=== PATIENT | female | born 1925 | race Caucasian/White ===

== ENCOUNTER 2016-09-15 18:49 | Emergency (ER) | payer MEDICARE, OTHER ==
[~2016-09-15] VITALS: Ht 157.5 cm; Wt 59.4 kg
[2016-09-15 18:49] VITALS: Ht 157.5 cm; Wt 59.4 kg
--- OUTSIDE RECORDS SUMMARY | 2016-09-15 18:56 | XMS REPORT ---
Author Author Oliverio Bragg Organization Unknown Address [address] [place], [place] [id number] Phone Care Team Providers Care Bread Baker Name Role Phone Karena Tillman PP Unavailable Unavailable Reason for Referral No Reason for Referral was given. History of Present Illness No HPI available. 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); (Active) Medication * Atenolol 50 MG Oral Tablet; take one tablet by mouth every day; Start Date: ; End Date: (Active) * Citracal/Vitamin D 250-200 MG-UNIT Oral Tablet; Start Date: 01/27/2009 (Active ) * Ocuvite Oral Tablet; Start Date: 01/27/2009 (Active) * Centrum Silver Oral Tablet; Start Date: 02/22/2011 (Active) * Fish Oil 1000 MG Oral Capsule; Start Date: 02/22/2011 (Active) * Clobetasol Propionate 0.05 % External Ointment; APPLY SPARINGLY TO RASH ON LEFT NECK TWICE DAILY UNTIL CLEAR; Start Date: 06/08/2012; End Date: (Active) Allergies and Adverse Reactions * Amoxicillin TABS (Active) * Biaxin TABS (Active) * Doxycycline Monohydrate CAPS; Rash (Active) Past Medical History * History of Hypertension (401.9); (Resolved) * History of Dizziness (780.4); (Resolved) * History of Ringing In The Ears (Tinnitus) (388.30); (Resolved) * History of Visual Impairment (369.9); (Resolved) * History of Numbness (Hypesthesia) (782.0); (Resolved) * History of Neck Stiffness (719.58); (Resolved) * History of Basal Cell Carcinoma Of The Skin Of The Face Comments: 01-15-10 Nasal tip, [place]/C by Dr. 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: 06-08-12 Bernal' s nose, shave bx; 06-27-12 ED/C (232.3); (Resolved) Procedures Procedure Procedure Date Date Completed Status Hysterectomy - - Active Immunization * Influenza (Lot #: [id number]) - Administered on: 03/03/2010 * Tdap (Adacel); #1 - Administered on: 03/16/2011 * Influenza (Lot #: [id number]) - Administered on: 04/07/2011 Family History * Maternal history of Cardiovascular Symptoms (Active) * Family history of Family Health Status Of Father - (Active) * Family history of Family Health Status Of Mother - (Active) Social History * Marital History - (Active) * Occupation: Retired (Active) * Caffeine Use (Active) * Never A Smoker (Active) * History of Alcohol Use (Active) * Stopped Drinking Alcohol (Active) Treatment Plan * Occult Blood Take Home Test 8211 06/24/2011 Routine * Urine Culture PRN 8000 06/24/2011 Routine * STOOL OCCULT BLOOD PANEL (x3) 8210 07/06/2012 Routine Advance Directives * No Advance Directives available. Encounters * Appointment 10/03/2012 * RTNPT , Provider: Guicho Daugherty, Status: Pen , Time: 9:45 AM 2012
--- OUTSIDE RECORDS SUMMARY | 2016-09-15 18:56 | XMS REPORT | Summary of Care ---
Author Author Rolan Reyes M.D. Organization Unknown Address [address] [place], [place] [id number] Phone Unavailable Care Team Providers Care Pipe Liner Name Role Phone Rosetta Thurston M.D. Unavailable Unavailable Rosetta Reyes M.D. 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, 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) Status: Active Rash (782.1, R21) Status: Active Brachial plexus lesions (353.0, G54.0) Status: Active Degenerative arthritis (715.90, M19.90) Status: Active Anemia (285.9, D64.9) Status: Active Hypothyroidism (244.9, E03.9) Status: Active Vertigo (780.4, R42) Status: Active Chest congestion (786.9, R09.89) Status: Active Benign essential hypertension (401.1, I10) Status: Active Hypertension (401.9, I10) Status: Active Memory difficulties (780.93, R41.3) Status: Active Leg ulcer (707.10, L97.909) Status: Active Medications Name Dates Details Atenolol 50 MG Oral Tablet take one tablet by mouth every day Quantity: 90 Primo Thurston M.D.* Started 16-Sep-2008 ActiveOcuvite Oral Tablet * Refills: 0 Primo Thurston M.D.* Started 27-Jan-2009 ActiveCalcium 600+D3 600-400 MG-UNIT Oral Tablet * Refills: 0 * Started 19-Oct-2012 ActiveMultiple Vitamin Oral Tablet TAKE 1 TABLET DAILY. * Quantity: 100 Refills: 0 * Started 04-Jun-2014 ActiveTriamterene-HCTZ 75-50 MG Oral Tablet take one tablet by mouth every day * Quantity: 30 Refills: 3 Primo Thurston M.D.* Started 10-Oct-2014 ActiveMupirocin 2 % External Ointment APPLY A SMALL AMOUNT 3 TIMES DAILY DIRECTED. 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, D04.30) Status: Resolved History of dizziness (V13.89, Z87.898) Status: Resolved History of hypertension (V12.59, Z86.79) Status: Resolved History of Neck stiffness (723.5, M43.6) Status: Resolved History of Numbness (782.0, R20.0) Status: Resolved History of tinnitus (V12.49, Z86.69) Status: Resolved History of Visual impairment (369.9, H54.7) Status: Resolved Procedures Procedure Dates Details History of Hysterectomy Procedures not documented Immunization Name Dates Details Influenza Lot #: [id number] Administered on:03-Mar-2010 Tdap (Adacel) #1 Administered on:16-Mar-2011 Influenza Lot #: [id number] Administered on:07-Apr-2011 Fluzone High-Dose Intramuscular Suspension Lot #: [id number] Administered on:05-Mar-2014 Family History Unknown Family Member* Name Dates Details Family history of Family Health Status Of Father - Comments: Family History Status: Active Family history of Family Health Status Of Mother - Comments: Family History Status: Active Mother* Name Dates Details Family history of Cardiovascular Symptoms Status: Active Social History Name Dates Details Smoking Status* Never smoker Vital Signs Date Test Result Details 11-Jan-2015 11:25 BP Systolic 108 mm[Hg] Status: BP Diastolic 58 mm[Hg] Status: Temperature 97.7 f Status: Heart Rate 69 /min Status: Respiration Rate 16 /min Status: O2 SAT 96 % Status: Results Date Description Value Details Results not documented Plan of Care Planned Observations* Name Dates Details Planned Goals not documented Goal Planned Encounters* Appointment; Provider: Primo Thurston On 19-Mar-2015 14:30 * Appointment; Provider: Primo Thurston On 26-Mar-2013 09:15 * Appointment; Provider: Primo Thurston On 25-Jul-2007 14:00 Instructions * Instructions not documented Encounters Appointment; Rolan Reyes Encounter Diagnosis: Problem not documented On 11-Jan-2015 11:00 Appointment; Primo Thurston Encounter Diagnosis: Problem not documented On 10-Oct-2014 11:30 Appointment; Kristian Howard Encounter Diagnosis: Problem not documented On 07-Aug-2014 10:00 Appointment; Primo Thurston Encounter Diagnosis: Problem not documented On 08-Jul-2014 11:45 Appointment; Primo Thurston Encounter Diagnosis: Problem not documented On 04-Jun-2014 14:00 Appointment; Primo Thurston Encounter Diagnosis: Problem not documented On 26-Feb-2014 15:30 Appointment; Primo Thurston Encounter Diagnosis: Problem not documented On 15:00 Appointment; Primo Thurston Encounter Diagnosis: Problem not documented On 27-Aug-2013 14:15 Appointment; Primo Thurston Encounter Diagnosis: Problem not documented On 20-Aug-2013 16:15
--- OUTSIDE RECORDS SUMMARY | 2016-09-15 18:56 | XMS REPORT ---
Author Author [facility]. Organization [facility] Address [address] [place] [address] Phone [phone] Summary purpose CCDA Sent to [facility] Chief Complaint and Reason for Visit No authorized Reason for Visit (Admitting Diagnosis) is available for this visit. Problem list No authorized problems tracked for continuity of care are available for this visit. Encounters No authorized problems tracked for encounter diagnoses are available for this visit. Medications No medications recorded for this patient visit Allergies, adverse reactions, alerts No allergy information is available for this patient. Immunizations No immunizations recorded for this patient visit Relevant diagnostic tests and/or laboratory data RESULTS Chemistry Group [id number]:25:00 Result Normal Range Units Sodium 141 134-145 mmol/L Potassium 3.8 3.6-5.0 mmol/L Chloride L 95 98-107 mmol/L CO2 29 22-30 mmol/L Glucose 103 75-110 mg/dl BUN H 24 9-20 mg/dl Creatinine .82 0.8-1.7 mg/dl Calcium 9.8 8.4-10.2 mg/dl History of procedures Procedure Code Code Type Description Date Performed Performing Physician 17893 CPT-4 METABOLIC PANEL TOTAL CA 10-22-2015 REJI MANSFIELD Functional status No functional or cognitive status observations are available for this visit. Vital signs No authorized vital signs are available for this visit. Social history No Social History or smoking status observations were recorded for this visit. ( Unknown if ever smoked.) Treatment Plan No treatment plan text is available for this visit. Hospital discharge instructions No discharge instruction text is available for this visit.
--- OUTSIDE RECORDS SUMMARY | 2016-09-15 18:56 | XMS REPORT | Summary of Care ---
Author Author Kristian Howard M.D. Unknown Address [address] [place], [place] [id number] Phone Unavailable Care Team Providers Care Straight Truck Driver Name Role Phone Karena Sebastian, Rosetat Unavailable Unavailable Primo Thurston PP Unavailable Unavailable [...] Status: Active Vertigo (780.4, R42) Status: Active Hypertension (401.9, I10) Status: Active Leg ulcer (707.10, L97.909) Status: Active Chest congestion (786.9, R09.89) Status: Active Benign essential hypertension (401.1, I10) Status: Active Memory difficulties (780.93, R41.3) Status: Active Medications Name Dates Details Atenolol [...] Quantity: 100 Refills: 0 * Started 04-Jun-2014 Active Allergies and Adverse Reactions Name Dates [...] Procedures Procedure Dates Details History of Hysterectomy Neuro Dementia Profile 9011 Ordered:07-Aug-2014 Immunization Name Dates Details Influenza Lot #: [id number] Administered on:03-Mar-2010 Tdap (Adacel) #1 Administered on:16-Mar-2011 Influenza Lot #: [id number] Administered on:07-Apr-2011 Fluzone High-Dose Intramuscular Suspension Lot #: [id number] Administered on:05-Mar-2014 Family History Unknown Family Member* [...] smoker Vital Signs Date Test Result Details 07-Aug-2014 10:31 BP Systolic 128 mm[Hg] Status: BP Diastolic 60 mm[Hg] Status: Heart Rate 84 /min Status: Respiration Rate 16 /min Status: Weight 118.5 lb Status: Body Mass Index Calculated 21.67 kg/m2 Status: Body Surface Area Calculated 1.53 m2 Status: 08-Jul-2014 11:56 BP Systolic 150 mm[Hg] Status: BP Diastolic 70 mm[Hg] Status: Heart Rate 94 /min Status: Weight 116 lb Status: Height 62 in Status: O2 SAT 96 % Status: Body Mass Index Calculated 21.22 kg/m2 Status: Body Surface Area Calculated 1.52 m2 Status: Results Date Description Value Details Results not documented Plan of Care Planned Observations* Name Dates Details Planned Goals not documented Goal Planned Encounters* Appointment; Provider: Primo Thurston On 10-Oct-2014 11:30 * Appointment; Provider: Primo Thurston On 26-Mar-2013 09:15 * Appointment; Provider: Primo Thurston On 25-Jul-2007 14:00 Instructions * Instructions not documented Encounters Appointment; Kristian Howard Encounter Diagnosis: Problem not [...] Diagnosis: Problem not documented On 20-Aug-2013 16:15 Appointment; Primo Thurston Encounter Diagnosis: Problem not documented On 19-Oct-2012 15:30 Appointment; Willow Lindo Encounter Diagnosis: Problem not documented On 04-Oct-2012 09:45 Appointment; Oliverio Bragg Encounter Diagnosis: Problem not documented On 03-Oct-2012 14:15
--- OUTSIDE RECORDS SUMMARY | 2016-09-15 18:56 | XMS REPORT | Summary of Care ---
Author Author Kristian Howard M.D. 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.4, M54.12) Status: Active Carpal tunnel syndrome (354.0, G56.00) Status: Active 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, 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, 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) Status: Active Rash (782.1, R21) Status: Active Brachial plexus lesions (353.0, G54.0) Status: Active Degenerative arthritis (715.90, M19.90) Status: Active Anemia (285.9, D64.9) Status: Active Hypothyroidism (244.9, E03.9) Status: Active Hypertension (401.9, I10) Status: Active Memory difficulties (780.93, R41.3) Status: Active Benign essential hypertension (401.1, I10) Status: Active Chest congestion (786.9, R09.89) Status: Active Leg ulcer (707.10, L97.909) Status: Active Vertigo (780.4, R42) Status: Active A Fall (E888.9) Status: Active Medications Name Dates Details Multiple Vitamin Oral Tablet TAKE 1 TABLET DAILY. Quantity: 100 * Started 04-Jun-2014 ActiveTriamterene-HCTZ 75-50 MG Oral Tablet take one tablet by mouth every day * Quantity: 30 Refills: 3 Primo Thurston M.D.* Started 10-Oct-2014 ActiveOcuvite Oral Tablet * Refills: 0 Primo Thurston M.D.* Started 27-Jan-2009 ActiveAtenolol 50 MG Oral Tablet take one tablet by mouth every day * Quantity: 90 Refills: 3 Primo Thurston M.D.* Started 16-Sep-2008 ActiveCalcium 600+D3 600-400 MG-UNIT Oral Tablet * Refills: 0 * Started 19-Oct-2012 Active Allergies and Adverse Reactions Name Dates [...] Immunization Name Dates Details Influenza Lot #: [id number] Administered on:03-Mar-2010 Tdap (Adacel) #1 Administered on:16-Mar-2011 Influenza Lot #: [id number] Administered on:07-Apr-2011 Fluzone High-Dose Intramuscular Suspension Lot #: [id number] Administered on:05-Mar-2014 Family History Unknown Family Member* [...] smoker Vital Signs Date Test Result Details No Known Vitals to report Results Date Description Value Details Results not documented Plan of Care Planned Observations* Name Dates Details Planned Goals not documented Goal Planned Encounters* Appointment; Provider: Primo Thurston On 26-Mar-2013 09:15 * Appointment; Provider: Primo Thurston On 25-Jul-2007 14:00 Instructions * Instructions not documented Encounters Appointment; Primo Thurston Encounter Diagnosis: Problem not [...]
--- OUTSIDE RECORDS SUMMARY | 2016-09-15 18:56 | XMS REPORT | Summary of Care ---
Author Author Primo Thurston M.D. Organization Unknown Address [address] [place], [place] [id number] Phone Unavailable Care Team Providers Care Production Tester Name Role Phone Rosetta Thurston M.D. Unavailable Unavailable Primo Thurston PP Unavailable [...] Status: Active Hypertension (401.9, I10) Status: Active Vertigo (780.4, R42) Status: Active Medications Name Dates Details Atenolol 50 MG Oral Tablet take one tablet by mouth every day Quantity: 90 Primo Thurston M.D.* Started 16-Sep-2008 ActiveTriamterene-HCTZ 75-50 MG Oral Tablet take one tablet by mouth every day * Quantity: 90 Refills: 1 Primo Thurston M.D.* Started 16-Sep-2008 ActiveOcuvite Oral Tablet * Refills: 0 Primo Thurston M.D.* Started 27-Jan-2009 ActiveCalcium 600+D3 600-400 MG-UNIT Oral Tablet * Refills: 0 * Started 19-Oct-2012 ActiveTransderm-Scop 1.5 MG Transdermal Patch 72 Hour Apply one patch every 3rd day * Quantity: 2 Refills: 0 Primo Thurston M.D.* Started 04-Mar-2014 Active Allergies and Adverse Reactions Name Dates [...] Procedures Procedure Dates Details History of Hysterectomy CP - Electro CardioGram ECG/ EKG Ordered:20-Feb-2014 STOOL OCCULT BLOOD PANEL (x3) 8210 Ordered:20-Feb-2014 Immunization Name Dates Details Influenza Lot #: [id number] Administered on:03-Mar-2010 Tdap (Adacel) #1 Administered on:16-Mar-2011 Influenza Lot #: [id number] Administered on:07-Apr-2011 Fluzone High-Dose Intramuscular Suspension Lot #: [id number] Administered on:05-Mar-2014 Family History Unknown Family Member* [...] smoker Vital Signs Date Test Result Details 26-Feb-2014 15:52 BP Systolic 152 mm[Hg] Status: BP Diastolic 68 mm[Hg] Status: Heart Rate 81 /min Status: Weight 113 lb Status: Height 62 in Status: O2 SAT 97 % Status: Body Mass Index Calculated 20.67 kg/m2 Status: Body Surface Area Calculated 1.5 m2 Status: Results Date Description Value Details 26-Feb-2014 08:42 CBC w/ Auto Diff 7150 Comments: Fastin hours WBC 6.3 K/uL (Better) Range: 4.5-11.0 RBC 4.61 mil/uL (Better) Range: 3.60-5.00 HGB 13.2 g/dL (Better) Range: 12.0-16.0 HCT 42.3 % (Better) Range: 36.0-48.0 MCV 91.7 fL (Better) Range: 80.0-99.0 MCH 28.6 pg (Better) Range: 27.3-32.5 MCHC 31.1 % (Below low threshold) Range: 32.0-36.0 RDW 12.8 % (Better) Range: 11.6-14.8 PLATELETS 190 K/uL (Better) Range: 150-400 MPV 7.6 fL (Better) Range: 6.0-11.0 %NEUTRO 58.5 % (Better) Range: 37.0-80.0 %LYMPHS 30.2 % (Better) Range: 13.0-50.0 %MONO 4.7 % (Better) Range: 0.0-12.0 %EOS 2.8 % (Better) Range: 0.0-7.0 %BASO 0.8 % (Better) Range: 0.0-2.5 %ADRIENNE 3.1 % (Better) Range: 0.0-5.0 NEUTRO 3.7 K/uL (Better) Range: 2.0-6.9 LYMPHS 1.9 K/uL (Better) Range: 0.6-3.4 MONOS 0.3 K/uL (Better) Range: 0.0-0.9 EOS 0.2 K/uL (Better) Range: 0.0-0.7 BASO 0.1 K/uL (Better) Range: 0.0-0.2 09:10 ERYTHROCYTE SED RATE 7800 Comments: Fastin hours ERYTHROCYTE SED RATE 16 mm/60 min. (Better) Range: 0-20 09:17 XRay CHEST-PA & LAT Comments: Exam Date: 08:52Dictation Date: 09:17 X CHEST PA & LAT (Better) 09:20 THYROID STIM. HORMONE 3602 Comments: Fastin hours THYROID STIM. HORMONE 1.659 uIU/mL (Better) Range: 0.550-4.780 Comments: \[id number]\No established reference ranges for infants and children < 2 years of ageNo established reference ranges for infants and children <2 years of age----- 09:21 Comprehensive Metabolic Panel 1212 Comments: Fastin hours SODIUM 139 mmol/L (Better) Range: 133-144 POTASSIUM 3.7 mmol/L (Better) Range: 3.5-5.1 CHLORIDE 101 mmol/L (Better) Range: 98-110 CARBON DIOXIDE 32.0 mmol/L (Better) Range: 23.0-33.0 ANION GAP 6 mmol/L (Better) Range: 6-16 BUN 21 mg/dL (Above high threshold) Range: 7-18 CREATININE, SERUM 0.87 mg/dL (Better) Range: 0.43-1.13 BUN:CREATININE RATIO 24 (Better) EST GFR, >60 ml/min (Better) Range: >60 EST GFR, NON-AFR MALAYSIAN >60 ml/min (Better) Range: >60 Comments: EST GFR is reported in ml/min per 1.73 m2 of body surface area. For -Slovak, please multiple result by 1.2.----- GLUCOSE 112 mg/dL (Above high threshold) Range: 70-100 ALK PHOSPHATASE 64 U/L (Better) Range: 46-116 Comments: Please Note: New Reference Range effective 2013.----- TOTAL BILIRUBIN 0.60 mg/dL (Better) Range: 0.20-1.00 AST 20 U/L (Better) Range: 8-35 ALT 19 U/L (Better) Range: 12-78 ALBUMIN 3.7 g/dL (Better) Range: 3.4-5.0 TOTAL PROTEIN 7.5 g/dL (Better) Range: 6.4-8.2 A/G RATIO 1.0 units (Better) Range: 1.0-1.8 CALCIUM 9.7 mg/dL (Better) Range: 8.5-10.1 09:21 C REACTIVE PROTEIN, CRP 2030 Comments: Fastin hours C REACTIVE PROTEIN 0.3 mg/dL (Better) Range: 0.0-0.9 09:21 LIPID PROFILE 1184 Comments: Fastin hours CHOLESTEROL 207 mg/dL (Above high threshold) Range: <200 TRIGLYCERIDES 140 mg/dL (Better) Range: 30-200 HDL Cholesterol 68 mg/dL (Better) Range: >39 NON HDL CHOLESTEROL 139 (Better) CARDIAC RSK FACTOR 3.0 units (Below low threshold) Range: 4.4-5.0 LDL - CALCULATED 111 mg/dL (Better) Range: 0-130 09:35 Urinalysis, Reflex to Microscopic or Culture PRN 8005 Comments: Fastin hours pH 8.0 (Abnormal) Range: 5.0-7.5 SP GRAVITY 1.015 (Better) Range: 1.010-1.030 APPEARANCE CLEAR (Better) Range: Clear COLOR YELLOW (Better) Range: Straw-Yellow PROTEIN NEGATIVE mg/dL (Better) Range: Negative-Trace GLUCOSE NEGATIVE mg/dL (Better) Range: Negative KETONE NEGATIVE mg/dL (Better) Range: Negative BILIRUB NEGATIVE (Better) Range: Negative BLOOD NEGATIVE (Better) Range: Negative UROBIL 0.2 EU/dL (Better) Range: 0.2-1.0 NITRITE NEGATIVE (Better) Range: Negative LEUK LARGE (Abnormal) Range: Negative 09:35 Urine Microscopic UMIC Comments: Fastin hours WBC 21-50 /HPF (Abnormal) Range: 0-5 Comments: Specimen referred to Microbiology for Culture----- MUCUS 1+ /LPF (Better) Range: Negative-2+ BACTERIA 2+ /HPF (Abnormal) Range: Negative-Trace EPITH 6-10 /HPF (Better) Range: 0-10 15:28 CP - Electro CardioGram ECG/ EKG Electro CardioGram (Better) 27-Feb-2014 09:29 URINE CULTURE 5010 Comments: Fastin hours *URINE CULTURE Microbiology results (Better) Comments: URINE SOURCE: Clean CatchCOLONY COUNT75,000-100,000 cfu/ml. of 3 or more colony types of gram positive bacteria, (SUGGESTIVE OF CONTAMINATION). *RECOMMEND REPEAT COLLECTION*- ---- Plan of Care Planned Observations* Name Dates Details Planned Goals not documented Goal Planned Encounters* Appointment; Provider: Primo Thurston On 04-Jun-2014 14:00 * Appointment; Provider: Primo Thurston On 26-Mar-2013 [...] Diagnosis: Problem not documented On 03-Oct-2012 14:15 Appointment; Primo Thurston Encounter Diagnosis: Problem not documented On 06-Jul-2012 14:30 Appointment; Willow Lindo Encounter Diagnosis: Problem not documented On 27-Jun-2012 10:30 Appointment; Primo Thurston Encounter Diagnosis: Problem not documented On 20-Jun-2012 15:15 Appointment; Willow Lindo Encounter Diagnosis: Problem not documented On 08-Jun-2012 09:30 Appointment; Primo Thurston Encounter Diagnosis: Problem not documented On 05-Apr-2012 14:45
--- OUTSIDE RECORDS SUMMARY | 2016-09-15 18:56 | XMS REPORT | Summary of Care ---
Author Author Primo Thurston M.D. Organization Unknown Address [address], [place] [address] Phone Unavailable Care Team Providers Care Ion Exchange Operator Name Role Phone Rosetta Thurston M.D. Unavailable [...] Status: Active Vertigo (780.4, R42) Status: Active Leg ulcer (707.10, L97.909) Status: [...] mouth every day * Quantity: 30 Refills: 11 Primo Thurston M.D.* Started 10-Oct-2014 Active Allergies and Adverse Reactions Name Dates [...] Immunization Name Dates Details Influenza Lot #: [id number] Administered on:03-Mar-2010 Tdap (Adacel) #1 Administered on:16-Mar-2011 Influenza Lot #: [id number] Administered on:07-Apr-2011 Fluzone High-Dose Intramuscular Suspension Lot #: [id number] Administered on:05-Mar-2014 Family History Unknown Family Member* [...] smoker Vital Signs Date Test Result Details 10-Oct-2014 11:36 BP Systolic 144 mm[Hg] Status: BP Diastolic 76 mm[Hg] Status: Heart Rate 75 /min Status: Weight 116 lb Status: Height 62 in Status: O2 SAT 94 % Status: Body Mass Index Calculated 21.22 kg/m2 Status: Body Surface Area Calculated 1.52 m2 Status: Results Date Description Value Details 10-Oct-2014 11:26 ELECTROLYTES 1230 SODIUM 135 mmol/L (Better) Range: 133-144 POTASSIUM 3.6 mmol/L (Better) Range: 3.5-5.1 CHLORIDE 96 mmol/L (Below low threshold) Range: 98-110 CARBON DIOXIDE 28.4 mmol/L (Better) Range: 23.0-33.0 ANION GAP 11 mmol/L (Better) Range: 6-16 11:26 CREATININE, SERUM 1135 CREATININE, SERUM 0.92 mg/dL (Better) Range: 0.43-1.13 EST GFR, NON-AFR MAURITIAN 58 ml/min (Below low threshold) Range: >60 Comments: EST GFR is reported in ml/min per 1.73 m2 of body surface area. For -[place], please multiple result by 1.2.----- Plan of Care Planned Observations* Name Dates Details Planned Goals not documented Goal Planned Encounters* Appointment; Provider: Primo Thurston On 25-Mar-2015 11:00 * Appointment; Provider: Primo Thurston On 26-Mar-2013 [...] Problem not documented On 15:00 Appointment; Primo Thurstno Encounter Diagnosis: Problem not documented On 27-Aug-2013 14:15 Appointment; Primo Thurston Encounter Diagnosis: Problem not documented On 20-Aug-2013 16:15 Appointment; Primo Thurston Encounter Diagnosis: Problem not documented On 19-Oct-2012 15:30
--- OUTSIDE RECORDS SUMMARY | 2016-09-15 18:56 | XMS REPORT ---
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); (Active) Medication * Atenolol 50 MG Oral Tablet; take one tablet by mouth every day; Start Date: ; End Date: (Active) * Citracal/Vitamin D 250-200 MG-UNIT Oral Tablet; Start Date: 01/27/2009 (Active ) * Ocuvite Oral Tablet; Start Date: 01/27/2009 (Active) * Clobetasol Propionate 0.05 % External Ointment; APPLY SPARINGLY TO RASH ON LEFT NECK TWICE DAILY UNTIL CLEAR; Start Date: 06/08/2012; End Date: (Active) * Maxzide 75-50 MG Oral Tablet; Start Date: 10/04/2012 (Active) Allergies and Adverse Reactions * Amoxicillin [...] - Active Immunization * Influenza (Lot #: [id number]) - Administered on: 03/03/2010 * Tdap (Adacel); #1 - Administered on: 03/16/2011 * Influenza (Lot #: [id number]) - Administered on: 04/07/2011 Family History * [...] No Advance Directives available. Encounters * Appointment 10/04/2012
--- OUTSIDE RECORDS SUMMARY | 2016-09-15 18:56 | XMS REPORT | Summary of Care ---
Author Author Primo Thurston M.D. Organization Unknown Address [address], [place] [address] Phone Unavailable Care Team Providers Care Cleaning Supervisor Name Role Phone Rosetta Thurston M.D. Unavailable [...] Active Leg ulcer (707.10, L97.909) Status: Active Hypertension (401.9, I10) Status: Active Medications Name Dates Details Atenolol [...] Refills: 3 Primo Thurston M.D.* Started 10-Oct-2014 Active Allergies [...] Procedures Procedure Dates Details History of Hysterectomy ECG/ EKG ([facility]) Pendin12-Mar-2015 XRay CHEST-PA & LAT Ordered:16-Apr-2015 Immunization Name Dates Details Influenza Lot #: [id number] Administered on:03-Mar-2010 Tdap (Adacel) #1 Administered on:16-Mar-2011 Influenza Lot #: [id number] Administered on:07-Apr-2011 Fluzone High-Dose Intramuscular Suspension Lot #: [id number] Administered on:05-Mar-2014 Family History Unknown Family Member* [...] Planned Encounters* Appointment; Provider: Primo Thurston On 23-Apr-2015 15:30 * Appointment; Provider: Primo Thurston On 26-Mar-2013 [...]
--- OUTSIDE RECORDS SUMMARY | 2016-09-15 18:56 | XMS REPORT ---
Author Author Primo Thurston Organization Unknown Address [address] [place], [place] [phone] Phone Care Team Providers Care Cannery Tender Engineer Name Role Phone Karena Tillman PP Unavailable [...] * Hypertension (401.9); (Active) * Presbyopia Comments: +2.25+[id number]+0.75+[id number] +3.00 (367.4); ( Active) * Combined Forms [...] MG Oral Tablet; Start Date: 10/04/2012 (Active) * Calcium 600+D3 600-400 MG-UNIT Oral Tablet; Start Date: 10/19/2012 (Active) Allergies and Adverse Reactions * Amoxicillin [...] - Active Immunization * Influenza (Lot #: [id number]) - Administered on: 03/03/2010 * Tdap (Adacel); #1 - Administered on: 03/16/2011 * Influenza (Lot #: [id number]) - Administered on: 04/07/2011 Family History * [...] Use (Active) * Stopped Drinking Alcohol (Active) Vital Signs Date Description Test Result 19 Oct 2012 03:42 PM recorded by: Soellner, Tammy L Weight 114 lb BP Systolic 130 mm[Hg] Height 62 in Heart Rate 81 /min BP Diastolic 66 mm[Hg] Body Surface Area Calculated 1.5 Body Mass Index Calculated 20.98 O2 SAT 95 % Treatment Plan * Occult Blood Take Home Test 8211 06/24/2011 Routine * Urine Culture PRN 8000 06/24/2011 Routine Advance Directives * No Advance Directives available. Encounters * Appointment 10/19/2012 * RTNPRIM , Provider: Karena Tillman, Status: Shashank , Time: 2:15 PM 2012 * RTNPT , Provider: Guicho Daugherty, Status: Shashank , Time: 9:45 AM 2012
--- OUTSIDE RECORDS SUMMARY | 2016-09-15 18:56 | XMS REPORT | Summary of Care ---
Author Author Primo Thurston M.D. Organization Unknown Address [address], [place] [address] Phone Unavailable Care Team Providers Care Road Machine Operator Name Role Phone Rosetta Thurston M.D. [...] Immunization Name Dates Details Influenza Lot #: [id number] Administered on:03-Mar-2010 Tdap (Adacel) #1 Administered on:16-Mar-2011 Influenza Lot #: [id number] Administered on:07-Apr-2011 Fluzone High-Dose Intramuscular Suspension Lot #: [id number] Administered on:05-Mar-2014 Family History Unknown Family Member* [...]
--- OUTSIDE RECORDS SUMMARY | 2016-09-15 18:57 | XMS REPORT | Summary of Care ---
Author Author Primo Thurston M.D. Organization Unknown Address [address] [place], [place] [address] Phone Unavailable Care Team Providers Care Assistant City Attorney Name Role Phone Rosetta Thurston M.D. Unavailable [...] History of Hysterectomy ECG/ EKG ([facility]) Pendin12-Mar-2015 C REACTIVE PROTEIN, CRP 2030 Ordered:12-Mar-2015 LIPID PROFILE 1184 Ordered:12-Mar-2015 XRay CHEST-PA & LAT Ordered:16-Apr-2015 Immunization Name Dates Details Influenza Lot #: [id number] Administered on:03-Mar-2010 Tdap (Adacel) #1 Administered on:16-Mar-2011 Influenza Lot #: [id number] Administered on:07-Apr-2011 Fluzone High-Dose Intramuscular Suspension Lot #: [id number] Administered on:05-Mar-2014 Family History Unknown Family Member* [...]
--- OUTSIDE RECORDS SUMMARY | 2016-09-15 18:57 | XMS REPORT | Summary of Care ---
Author Author Primo Thurston M.D. Organization Unknown Address [address], [place] [id number] Phone Unavailable Care Team Providers Care Shop Worker Name Role Phone Karena Sebastian, Rosetta Unavailable [...] Refills: 1 Primo Thurston M.D.* Started 16-Sep-2008 ActiveCalcium 600+D3 600-400 MG-UNIT Oral Tablet * Refills: 0 * Started 19-Oct-2012 ActiveTransderm-Scop 1.5 MG Transdermal Patch 72 Hour Apply one patch every 3rd day * Quantity: 2 Refills: 0 Primo Thurston M.D.* Started 04-Mar-2014 ActiveOcuvite Oral Tablet * Refills: 0 LaurashantalPrimo M.D.* Started 27-Jan-2009 Active Allergies and Adverse Reactions Name Dates [...] Immunization Name Dates Details Influenza Lot #: [id number] Administered on:03-Mar-2010 Tdap (Adacel) #1 Administered on:16-Mar-2011 Influenza Lot #: [id number] Administered on:07-Apr-2011 Fluzone High-Dose Intramuscular Suspension Lot #: [id number] Administered on:05-Mar-2014 Family History Unknown Family Member* [...] ml/min (Better) Range: >60 EST GFR, NON-AFR BRUNEIAN >60 ml/min (Better) Range: >60 Comments: EST GFR is reported in ml/min per 1.73 m2 of body surface area. For -Spanish, please multiple result by 1.2.----- GLUCOSE 112 [...]
--- OUTSIDE RECORDS SUMMARY | 2016-09-15 18:57 | XMS REPORT ---
Author Author GENERATED, SYSTEM Organization Unknown Address Unknown Phone Unavailable Care Team Providers Care Returner Name Role Phone MD JHONY, UYEN [phone] Reason For Visit Chief Complaint RIGHT KNEE OSTEOARTHRITIS,RIGHT TOTAL KNEE ART Social History Functional Status Vital Signs Results Problems Encounter Diagnosis No relevant problems exist. Additional Problems * Fracture of Proximal End of Femur Comment:Problem resolved by Soarian Workflow upon Discharge, Status:Resolved. Encounters Encounter Diagnosis No relevant problems exist. Plan of Care Procedures * Completed , on 02/24/2013 12:00 AM * Completed , on 02/23/2013 12:00 AM * Completed , on 02/22/2013 12:00 AM * Completed , on 02/19/2013 12:00 AM Immunizations No immunizations administered or ordered. Hospital Course Hospital Discharge Instructions Allergies, Adverse Reactions, Alerts * NSAIDS (Non-Steroidal Anti-Inflammatory Drug) causes unspecified. * Latex Allergy has not been assessed. * IV Contrast Allergy has not been assessed. * No Known Food Allergies. Medication Medication reconciliation has not been performed.
--- OUTSIDE RECORDS SUMMARY | 2016-09-15 18:57 | XMS REPORT | Summary of Care ---
Author Author Primo Thurston M.D. Organization Unknown Address [address], [place] [id number] Phone Unavailable Care Team Providers Care Rock Mason Apprentice Name Role Phone Rosetta Thurston M.D. Unavailable [...] Active Memory difficulties (780.93, R41.3) Status: Active Hypertension (401.9, I10) Status: Active [...] day * Quantity: 30 Refills: 11 Primo Tuhrston M.D.* Started 10-Oct-2014 Active Allergies and Adverse [...] Immunization Name Dates Details Influenza Lot #: [id number] Administered on:03-Mar-2010 Tdap (Adacel) #1 Administered on:16-Mar-2011 Influenza Lot #: [id number] Administered on:07-Apr-2011 Fluzone High-Dose Intramuscular Suspension Lot #: [id number] Administered on:05-Mar-2014 Family History Unknown Family Member* [...] mg/dL (Better) Range: 0.43-1.13 EST GFR, NON-AFR BAHAMIAN 58 ml/min (Below low threshold) Range: >60 Comments: EST GFR is reported in ml/min per 1.73 m2 of body surface area. For -Malian, please multiple result by 1.2.----- Plan of [...]
--- OUTSIDE RECORDS SUMMARY | 2016-09-15 18:57 | XMS REPORT | Continuity of Care Document ---
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, with behavioral disturbance 10/10/2015 Reji Deutsch MD 294.20 Dementia, unspecified, without behavioral disturbance 10/22/2015 REJI CH MD I10 Essential (primary) hypertension 12/25/2015 Reji Deutsch MD 483.8 Pneumonia, NEC 09/06/2016 Reji Deutsch MD 238.2 Atypical skin lesion Procedures Code Description [place] [address] Initial nursing facility care, per day, E/M of pt, 3 components; low severity; 25 minutes 10/16/2015 24259 METABOLIC PANEL TOTAL CA REJI CH MD 10/22/2015 46908 Initial nursing facility care, per day, E/M of pt, 3 components; low severity; 25 minutes 11/20/2015 61668 Subsequent nurse facility care, QD, EM pt, 2/3 comp; respond inadequate, minor complication; MDs 15m 11/21/2015 63096 Office/outpatient visit; established patient, level 3 12/25/2015 72570 Subsequent nurse facility care, QD, EM pt, 2/3 comp; respond inadequate, minor complication; MDs 15m 01/01/2016 42907 Radiologic examination, chest, two views, frontal and lateral 01/01/2016 37936 Office/outpatient visit; established patient, level 4 01/01/2016 74837 Radiologic examination, chest, two views, frontal and lateral 03/09/2016 53587 Office/outpatient visit; established patient, level 4 03/09/2016 57701 Subsequent nurse facility care, QD, EM pt, 2/3 comp; respond inadequate, minor complication; [facility] 15 03/11/2016 50765 Subsequent nurse facility care, QD, EM pt, 2/3 comp; respond inadequate, minor complication; [address] 05/04/2016 14329 Subsequent nurse facility care, QD, EM pt, 2/3 comp; respond inadequate, minor complication; [address] 05/06/2016 97209 Subsequent nurse facility care, QD, EM pt, 2/3 comp; respond inadequate, minor complication; [address] 07/06/2016 61988 Subsequent nurse fac care, day, EM pt, 2/3 components; signific complication/problem; 25 minutes 07/08/2016 38979 Subsequent nurse fac care, day, EM pt, 2/3 components; signific complication/problem; 25 minutes 09/03/2016 45198 Subsequent nurse fac care, day, EM pt, 2/3 components; signific complication/problem; 25 minutes 09/06/2016 Results Test Result Range Basic Metabolic Panel - 10/22/15 09:47 Sodium 141 MMOLL 134-145 Potassium 3.8 MMOLL 3.6-5.0 Chloride 95 MMOLL 98-107 CO2 29 MMOLL 22-30 Glucose 103 MG/DL 75-110 BUN 24 MG/DL 9-20 Creatinine .82 MG/DL 0.8-1.7 Calcium 9.8 MG/DL 8.4-10.2 Encounters ACCT No. Visit Date/Time Discharge Status Pt. Type Provider Facility Loc./Unit Complaint [id number] 03/06/2014 16:43:00 2014 16:44:48 DIS Inpatient CINDY VAZQUEZ
--- OUTSIDE RECORDS SUMMARY | 2016-09-15 18:57 | XMS REPORT | Summary of Care ---
Author Author Primo Thurston M.D. Organization Unknown Address [address], [place] [id number] Phone Unavailable Care Team Providers Care Bag Tester Name Role Phone Rosetta Thurston M.D. [...] Active Chest congestion (786.9, R09.89) Status: Active Memory difficulties (780.93, R41.3) Status: Active Medications Name Dates Details Atenolol 50 MG Oral Tablet take one tablet by mouth every day Quantity: 90 Primo Thurston M.D.* Started 16-Sep-2008 ActiveTriamterene-HCTZ 75-50 MG Oral Tablet take one tablet by mouth every day * Quantity: 90 Refills: 3 Primo Thurston M.D.* Started 16-Sep-2008 ActiveOcuvite Oral [...] Immunization Name Dates Details Influenza Lot #: [id number] Administered on:03-Mar-2010 Tdap (Adacel) #1 Administered on:16-Mar-2011 Influenza Lot #: [id number] Administered on:07-Apr-2011 Fluzone High-Dose Intramuscular Suspension Lot #: [id number] Administered on:05-Mar-2014 Family History Unknown Family Member* [...] smoker Vital Signs Date Test Result Details 08-Jul-2014 11:56 BP Systolic 150 mm[Hg] Status: [...] Thurston On 10-Oct-2014 11:30 * Appointment; Provider: Kristian Howard On 07-Aug-2014 10:00 * Appointment; Provider: Primo Thurston On 26-Mar-2013 [...]
--- OUTSIDE RECORDS SUMMARY | 2016-09-15 18:57 | XMS REPORT | Summary of Care ---
Author Author Primo Thurston M.D. Organization Unknown Address [address], [place] [address] Phone Unavailable Care Team Providers Care Metal Roaster Name Role Phone Rosetta Thurston M.D. Unavailable [...] Status: Active Anemia (285.9, D64.9) Status: Active Vertigo (780.4, R42) Status: Active Chest congestion (786.9, R09.89) Status: Active Benign essential hypertension (401.1, I10) Status: Active Memory difficulties (780.93, R41.3) Status: Active Leg ulcer (707.10, L97.909) Status: Active Hypertension (401.9, I10) Status: Active Hypothyroidism (244.9, E03.9) Status: Active Poor short term memory (780.93, R41.3) Status: Active Medications Name Dates Details Atenolol 50 MG Oral Tablet take one tablet by mouth every day Quantity: 90 Primo Thurston M.D.* Started 16-Sep-2008 ActiveOcuvite Oral Tablet * Refills: 0 Primo Thurston M.D.* Started 27-Jan-2009 ActiveCalcium 600+D3 600-400 MG-UNIT Oral Tablet * Refills: 0 * Started 19-Oct-2012 ActiveTriamterene-HCTZ 75-50 MG Oral Tablet take one tablet by mouth every day * Quantity: 30 Refills: 3 Primo Thurston M.D.* Started 10-Oct-2014 ActiveEnsure Complete Shake Oral Liquid USE DIRECTED. * Refills: 0 Primo Thurston M.D.* Started 23-Apr-2015 Active Allergies and Adverse Reactions Name Dates [...] Immunization Name Dates Details Influenza Lot #: [id number] Administered on:03-Mar-2010 Tdap (Adacel) #1 Administered on:16-Mar-2011 Influenza Lot #: [id number] Administered on:07-Apr-2011 Fluzone High-Dose Intramuscular Suspension Lot #: [id number] Administered on:05-Mar-2014 Family History Unknown Family Member* [...] smoker Vital Signs Date Test Result Details 23-Apr-2015 15:20 BP Systolic 142 mm[Hg] Status: BP Diastolic 82 mm[Hg] Status: Heart Rate 78 /min Status: Height 62 in Status: Weight 116 lb Status: O2 SAT 94 % Status: Body Mass Index Calculated 21.22 kg/m2 Status: Body Surface Area Calculated 1.52 m2 Status: Results Date Description Value Details 23-Apr-2015 09:11 CBC w/ Auto Diff 7150 Comments: Fastin hours WBC 5.9 K/uL (Better) Range: 4.5-11.0 RBC 4.34 mil/uL (Better) Range: 3.60-5.00 HGB 12.6 g/dL (Better) Range: 12.0-16.0 HCT 39.4 % (Better) Range: 36.0-48.0 MCV 90.7 fL (Better) Range: 80.0-99.0 MCH 29.1 pg (Better) Range: 27.3-32.5 MCHC 32.1 % (Better) Range: 32.0-36.0 RDW 12.7 % (Better) Range: 11.6-14.8 PLATELETS 193 K/uL (Better) Range: 150-400 MPV 8.2 fL (Better) Range: 6.0-11.0 %NEUTRO 62.8 % (Better) Range: 37.0-80.0 %LYMPHS 25.9 % (Better) Range: 13.0-50.0 %MONO 5.0 % (Better) Range: 0.0-12.0 %EOS 2.9 % (Better) Range: 0.0-7.0 %BASO 0.6 % (Better) Range: 0.0-2.5 %ADRIENNE 2.8 % (Better) Range: 0.0-5.0 NEUTRO 3.7 K/uL (Better) Range: 2.0-6.9 LYMPHS 1.5 K/uL (Better) Range: 0.6-3.4 MONOS 0.3 K/uL (Better) Range: 0.0-0.9 EOS 0.2 K/uL (Better) Range: 0.0-0.7 BASO 0.0 K/uL (Better) Range: 0.0-0.2 09:21 Urinalysis, Reflex to Microscopic or Culture PRN 8005 Comments: Fastin hours pH 7.0 (Better) Range: 5.0-7.5 SP GRAVITY 1.015 (Better) Range: 1.010-1.030 APPEARANCE CLOUDY (Abnormal) Range: Clear COLOR YELLOW (Better) Range: Straw-Yellow PROTEIN NEGATIVE mg/dL (Better) Range: Negative-Trace GLUCOSE NEGATIVE mg/dL (Better) Range: Negative KETONE NEGATIVE mg/dL (Better) Range: Negative BILIRUB NEGATIVE (Better) Range: Negative BLOOD NEGATIVE (Better) Range: Negative UROBIL 1.0 EU/dL (Better) Range: 0.2-1.0 NITRITE NEGATIVE (Better) Range: Negative LEUK SMALL (Abnormal) Range: Negative 09:21 Urine Microscopic UMIC Comments: Fastin hours WBC 0-2 /HPF (Better) Range: 0-5 BACTERIA Trace /HPF (Better) Range: Negative-Trace EPITH 0-2 /HPF (Better) Range: 0-10 U AMORPH 2+ /HPF (Better) 09:33 ERYTHROCYTE SED RATE 7800 Comments: Fastin hours ERYTHROCYTE SED RATE 11 mm/60 min. (Better) Range: 0-20 09:46 THYROID STIM. HORMONE 3602 Comments: Fastin hours THYROID STIM. HORMONE 1.262 uIU/mL (Better) Range: 0.550-4.780 Comments: No established reference ranges for infants and children <2 years of age----- 10:05 LIPID PROFILE 1184 Comments: Fastin hours CHOLESTEROL 202 mg/dL (Above high threshold) Range: <200 TRIGLYCERIDES 70 mg/dL (Better) Range: 30-200 HDL Cholesterol 79 mg/dL (Better) Range: >39 NON HDL CHOLESTEROL 123 (Better) CARDIAC RSK FACTOR 2.6 units (Below low threshold) Range: 4.4-5.0 LDL - CALCULATED 109 mg/dL (Better) Range: 0-130 10:07 C REACTIVE PROTEIN, CRP 2030 Comments: Fastin hours C REACTIVE PROTEIN <0.2 mg/dL (Better) Range: 0.0-0.9 10:16 Comprehensive Metabolic Panel 1212 Comments: Fastin hours SODIUM 140 mmol/L (Better) Range: 133-144 POTASSIUM 3.6 mmol/L (Better) Range: 3.5-5.1 CHLORIDE 105 mmol/L (Better) Range: 98-110 CARBON DIOXIDE 27.8 mmol/L (Better) Range: 23.0-33.0 ANION GAP 7 mmol/L (Better) Range: 6-16 BUN 19 mg/dL (Above high threshold) Range: 7-18 CREATININE, SERUM 0.86 mg/dL (Better) Range: 0.55-1.02 Comments: Please note new reference ranges effective 2014.----- BUN:CREATININE RATIO 22 (Better) EST GFR, >60 ml/min (Better) Range: >60 EST GFR, NON-AFR ANDORRAN >60 ml/min (Better) Range: >60 Comments: EST GFR is reported in ml/min per 1.73 m2 of body surface area. For -Thai, please multiple result by 1.2.----- GLUCOSE 98 mg/dL (Better) Range: 70-100 ALK PHOSPHATASE 68 U/L (Better) Range: 46-116 TOTAL BILIRUBIN 0.60 mg/dL (Better) Range: 0.20-1.00 AST 21 U/L (Better) Range: 8-35 ALT 25 U/L (Better) Range: 14-59 Comments: Please note new reference ranges. Effective 08/08/2014.----- ALBUMIN 3.7 g/dL (Better) Range: 3.4-5.0 TOTAL PROTEIN 7.0 g/dL (Better) Range: 6.4-8.2 A/G RATIO 1.1 units (Better) Range: 1.0-1.8 CALCIUM 9.1 mg/dL (Better) Range: 8.5-10.1 14:44 XRay CHEST-PA & LAT Comments: Exam Date: 04/23/2015 14: 32Dictation Date: 04/23/2015 14:44 X CHEST PA & LAT (Better) 14:52 ECG/ EKG ([facility]) Electro CardioGram (Better) Plan of Care Planned Observations* Name Dates Details Planned Goals not documented Goal Planned Encounters* Appointment; Provider: Primo Thurston On 22-Jul-2015 15:15 * Appointment; Provider: Primo Thurston On 26-Mar-2013 09:15 * Appointment; Provider: Primo Thurston On 25-Jul-2007 14:00 Instructions * Instructions not documented Encounters Appointment; Primo Thurston Encounter Diagnosis: Problem not documented On 23-Apr-2015 15:30 Appointment; Rolan Reyes Encounter Diagnosis: Problem not [...]
--- OUTSIDE RECORDS SUMMARY | 2016-09-15 18:57 | XMS REPORT | Summary of Care ---
Author Author Primo Thurston M.D. Organization Unknown Address [address], [place] [address] Phone Unavailable Care Team Providers Care Executive Secretary Name Role Phone Rosetta Thurston M.D. Unavailable [...] Active Chest congestion (786.9, R09.89) Status: Active Medications Name Dates Details Atenolol [...] Quantity: 100 Refills: 0 * Started 04-Jun-2014 ActiveLevofloxacin 500 MG Oral Tablet Take on tablet by mouth every day for ten days * Quantity: 10 Refills: 0 Primo Thurston M.D.* Started 04-Jun-2014 ActiveOcuvite Oral Tablet * Refills: 0 Primo Thurston M.D.* Started 27-Jan-2009 Active Allergies and Adverse [...] Immunization Name Dates Details Influenza Lot #: [id number] Administered on:03-Mar-2010 Tdap (Adacel) #1 Administered on:16-Mar-2011 Influenza Lot #: [id number] Administered on:07-Apr-2011 Fluzone High-Dose Intramuscular Suspension Lot #: [id number] Administered on:05-Mar-2014 Family History Unknown Family Member* [...] smoker Vital Signs Date Test Result Details 04-Jun-2014 13:46 BP Systolic 138 mm[Hg] Status: BP Diastolic 74 mm[Hg] Status: Heart Rate 86 /min Status: Weight 115.8 lb Status: O2 SAT 94 % Status: Body Mass Index Calculated 21.18 kg/m2 Status: Body Surface Area Calculated 1.52 m2 Status: Results Date Description Value Details 04-Jun-2014 13:12 CREATININE, SERUM 1135 CREATININE, SERUM 0.86 mg/dL (Better) Range: 0.43-1.13 EST GFR, NON-AFR CHILEAN >60 ml/min (Better) Range: >60 Comments: EST GFR is reported in ml/min per 1.73 m2 of body surface area. For -Fijian, please multiple result by 1.2.----- 13:12 ELECTROLYTES 1230 SODIUM 137 mmol/L (Better) Range: 133-144 POTASSIUM 4.0 mmol/L (Better) Range: 3.5-5.1 CHLORIDE 99 mmol/L (Better) Range: 98-110 CARBON DIOXIDE 30.8 mmol/L (Better) Range: 23.0-33.0 ANION GAP 7 mmol/L (Better) Range: 6-16 Plan of Care Planned Observations* Name Dates Details Planned Goals not documented Goal Planned Encounters* Appointment; Provider: Primo Thusrton On 08-Jul-2014 11:45 * Appointment; Provider: Primo Thurston On 26-Mar-2013 [...]
--- OUTSIDE RECORDS SUMMARY | 2016-09-15 18:57 | XMS REPORT | Summary of Care ---
Author Author Primo Thurston M.D. Organization Unknown Address [address], [place] [id number] Phone Unavailable Care Team Providers Care Warehouse Shipping Clerk Name Role Phone Rosetta Thurston M.D. Unavailable [...] Active Leg ulcer (707.10, L97.909) Status: Active Hypothyroidism (244.9, E03.9) Status: Active Poor short term memory (780.93, R41.3) Status: Active Hypertension (401.9, I10) Status: Active Medications Name Dates Details Atenolol 50 MG Oral Tablet take one tablet by mouth every day Quantity: 90 Primo Thurston M.D.* Started 16-Sep-2008 ActiveOcuvite Oral Tablet * Refills: 0 Primo Thursotn M.D.* Started 27-Jan-2009 ActiveCalcium 600+D3 600-400 MG-UNIT [...] Immunization Name Dates Details Influenza Lot #: [id number] Administered on:03-Mar-2010 Tdap (Adacel) #1 Administered on:16-Mar-2011 Influenza Lot #: [id number] Administered on:07-Apr-2011 Fluzone High-Dose Intramuscular Suspension Lot #: [id number] Administered on:05-Mar-2014 Family History Unknown Family Member* [...] Thurston Encounter Diagnosis: Problem not documented On 22-Jul-2015 15:15 Appointment; Primo Thurston Encounter Diagnosis: Problem not [...]
--- OUTSIDE RECORDS SUMMARY | 2016-09-15 18:57 | XMS REPORT | Summary of Care ---
Author Author Primo Thurston M.D. Organization Unknown Address [address], [place] [id number] Phone Unavailable Care Team Providers Care Economic Manager Name Role Phone Rosetta Thurston M.D. Unavailable [...] Refills: 0 Primo Thurston M.D.* Started 27-Jan-2009 ActiveTriamterene-HCTZ 75-50 MG Oral Tablet take one tablet by mouth every day * Quantity: 30 Refills: 3 Primo Thurston M.D.* Started 10-Oct-2014 ActiveMultiple Vitamin Oral Tablet TAKE 1 TABLET DAILY. * Quantity: 100 Refills: 0 * Started 04-Jun-2014 ActiveCalcium 600+D3 600-400 MG-UNIT Oral Tablet * [...] History of Hysterectomy ECG/ EKG ([facility]) Pendin12-Mar-2015 Urinalysis, Reflex to Microscopic or Culture PRN 8005 Ordered:12-Mar-2015 CBC w/ Auto Diff 7150 Ordered:12-Mar-2015 ERYTHROCYTE SED RATE 7800 Ordered:12-Mar-2015 Comprehensive Metabolic Panel 1212 Ordered:12-Mar-2015 C REACTIVE PROTEIN, CRP 2030 Ordered:12-Mar-2015 LIPID PROFILE 1184 Ordered:12-Mar-2015 XRay CHEST-PA & LAT Ordered:16-Apr-2015 Immunization Name Dates Details Influenza Lot #: [id number] Administered on:03-Mar-2010 Tdap (Adacel) #1 Administered on:16-Mar-2011 Influenza Lot #: [id number] Administered on:07-Apr-2011 Fluzone High-Dose Intramuscular Suspension Lot #: [id number] Administered on:05-Mar-2014 Family History Unknown Family Member* [...]
--- OUTSIDE RECORDS SUMMARY | 2016-09-15 18:58 | XMS REPORT | Summary of Care ---
Author Author Primo Thurston M.D. Organization Unknown Address [address], [place] [id number] Phone Unavailable Care Team Providers Care Technical Data Analyst Name Role Phone Rosetta Thurston M.D. Unavailable Unavailable Primo Thurston PP Unavailable Unavailable Unavailable Functional Status Functional Status Health Issues* Name Dates Details Functional status health issues are not documented Status: Cognitive Status Health Issues* Name Dates Details Cognitive status health issues are not documented Status: Problems Name Dates Details A Fall (E888.9) Status: Active Degenerative arthritis (715.90, M19.90) Status: Active Anemia (285.9, D64.9) Status: Active Vertigo (780.4, R42) Status: Active Benign essential hypertension (401.1, I10) Status: Active Hypothyroidism (244.9, E03.9) Status: Active Poor short term memory (780.93, R41.3) Status: Active Hypertension (401.9, I10) Status: Active 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, 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 Carpal tunnel syndrome (354.0, G56.00) Status: Active 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 * Refills: 0 Primo Thurston M.D.* Started 23-Apr-2015 ActiveCalcium 600+D3 600-400 MG-UNIT Oral Tablet * [...] Immunization Name Dates Details Influenza Lot #: [id number] Administered on:03-Mar-2010 Tdap (Adacel) #1 Administered on:16-Mar-2011 Influenza Lot #: [id number] Administered on:07-Apr-2011 Fluzone High-Dose Intramuscular Suspension Lot #: [id number] Administered on:05-Mar-2014 Family History Unknown Family Member* [...]
[2016-09-15] MEDS ORDERED: ATEN25TA PO (19:03)
[2016-09-15] MEDS ORDERED: LORA0.5T2 PO (19:03)
[2016-09-15] MEDS ORDERED: CITA10TA7 PO (19:03)
[2016-09-15] MEDS ORDERED: ALBU2.5V2 AEROSOL (19:03)
[2016-09-15] MEDS ORDERED: MV-M1TAB38 PO (19:03)
[2016-09-15] MEDS ORDERED: CALC1CAP22 PO (19:03)
[2016-09-15] MEDS ORDERED: ACET-62 PO (19:03)
--- NOTE | 2016-09-15 19:12 | ERPDOC ---
Departure Disposition Decision Date: Sep 15, 2016 Disposition Decision Time: 19:58 Disposition: 01 DISCHARGED HOME, SELF-CARE Impression Impression Impression: Primary Impression: Chronic left hip pain Additional Impression: Fall Qualified Codes: W19.XXXA - Unspecified fall, initial encounter Severity: Mild Condition: Improved Seen By: Physician only Patient Instructions: Fall Prevention (ED) Problems/Meds/Labs Reviewed?: Yes Medications reviewed and manag: Yes Additional Instructions: Routine care, medications, and fall prevention Follow up care ordered?: Yes Mental Status: Alert, Confused HPI - Hip Pain General Chief Complaint: Fall Stated Complaint: FALL,L HIP PAIN, KNEE PAIN Time Seen by Provider: 19:04 Source: patient, EMS, [facility] records Exam Limitations: dementia HPI - Hip Pain Initial Comments Pt fell at the [place] earlier today and complained about left hip pain. [facility] staff were concerned due to the complaint of hip pain, however the patient states that she is able to walk normally, she can lift both of her legs, and she does not feel like her hip pain is "anything to worry about." Occurred At: home Onset: Rapid Duration: 4-6 hrs Severity: mild Location: hip (L) Method of Injury: fell Associated Symptoms: DENIES: fatigue, fever, groin pain, insomnia, lumps, muscle aches, pain radiating to knees, trouble walking Hx of Similar Symptoms: No Allergies: Coded Allergies: amoxicillin (Verified Allergy, Unknown, 09/15/16) clarithromycin (Verified Allergy, Unknown, 09/15/16) doxycycline (Verified Allergy, Unknown, 09/15/16) Past History Past Medical History Metabolic: hypertension, hypothyroidism Respiratory: pneumonia Psychological: anxiety, dementia Surgical History Surgical History Comments Surgical history unavailable from the patient Social History Smoking Status: Never smoker Does patient use chewing tobac: No Second Hand Exposure: No Record Review Pertinent history updated: Yes Review of Systems Constitutional Constitutional: DENIES: appetite decrease, appetite increase, chills, dizziness , fever, weakness ENMT Ears: DENIES: pain Hearing: DENIES: hearing loss, tinnitus Balance: DENIES: vertigo Mouth/Throat: DENIES: change in swallowing, change in voice, hoarsness, painful swallowing, sore throat Cardiovascular Cardiac: DENIES: chest pain, dyspnea on exertion Rhythm/Rate: DENIES: irregular beat, palpitations, tachycardia Vascular: DENIES: pedal edema Pulmonary Respiratory: DENIES: cough, dyspnea, pleuritic chest pain GI Upper Abdomen: DENIES: dysphagia, heartburn/indigestion, nausea, pain, vomiting Lower Abdomen: DENIES: blood in stool, constipation, diarrhea, pain General: DENIES: burning, dysuria, frequency, pain, urgency Musculoskeletal General: pain (minimal left hip pain, patient considers this chronic) Integumentary Skin: DENIES: rash, sores Neurological General: DENIES: headache, numbness, tingling, vertigo, weakness Psychiatric Psychiatric: DENIES: anxiety, depression, nervousness Physical Exam General General Nourishment: well nourished, well developed, appears stated age, no acute distress General Body Habitus: well groomed Vitals and Pain First Documented Vital Signs Date Time Temp Pulse Resp B/P Pulse Ox O2 Delivery O2 Flow Rate FiO2 09/15/16 18:49 89 18 147/80 93 Room Air Weight: Kilograms: 59.400 Height (feet): 5 Height (inches): 2.00 Triage Pain Scale: RN VS reviewed by Provider: Yes Normal Exams: Head: Normocephalic w/o trauma Eyes: Pupils are PERRLA w/ EOMI, No scleral icterus, irritation, or foreign bodies noted ENMT: No facial trauma, nasal exudates, pharyngeal erythema, or exudates are noted Neck: Full range of motion, without adenopathy, JVD, bruits or thyromegaly Chest/Resp: Clear all ruano, with good airflow, and symmetry bilaterally CV: Regular rate and rhythm, without murmur or gallop, Pulses 2+ all extremities, capillary refill, <2 seconds all ext., no pedal edema noted Abdomen: Bowel sounds positive, soft, non-tender, non-distended, no hepatosplenomegaly, masses or bruits noted Lymphatic: No lymphadenopathy, or lymphedema noted Integumentary: No rashes, hives, or bruising noted, hair and nails, without abnormality Neurologic: Patient is alert, and oriented, cranial nerves, motor/sensory/ cerebellar, exams w/o gross deficits, to observation Psychiatric: Patient exhibits, appropriate attention, emotion and affect Musculoskeletal (brief) Musculoskeletal Brief: FOUND: tenderness (minimal left hip tenderness, no deformity, no decreased range of motion), NOT FOUND: deformity, loss of motion, spasm Progress Results/Orders Orders Procedure Category Date Status Time Femur Left RAD 09/15/16 Taken Progress Progress Left hip x-rays - Large internal fixators in place, no evidence of acute fracture or dislocation UYEN HOLDER MD Sep 15, 2016 19:12
--- NOTE | 2016-09-15 19:25 | NUR ---
STATUS SON AND DAUGHTER IN LAW ARRIVE TO PTS ROOM
--- NOTE | 2016-09-15 19:28 | NUR ---
PT TO XRAY
--- OUTSIDE RECORDS SUMMARY | 2016-09-15 19:36 | XMS REPORT ---
Author Author GENERATED, SYSTEM Organization Unknown Address Unknown Phone Unavailable Care Team Providers Care Roof Cement And Paint Maker Helper Name Role Phone MD JHONY, UYEN [phone] Reason For Visit Chief Complaint RIGHT KNEE [...]
--- OUTSIDE RECORDS SUMMARY | 2016-09-15 19:36 | XMS REPORT | Continuity of Care Document ---
Author Author Organization Address Unknown Phone Unavailable Allergies Active Description Code Type Severity Reaction Onset Reported/Identified Relationship to Patient Clinical Status Yes Amoxicillin [id number] Drug Allergy Moderate N/A Yes Clarithromycin [id number] Drug Allergy Moderate N/A Yes Doxycycline [id number] Drug Allergy Moderate N/A Medications Problems Date [...] Procedures Code Description [place] [address] Initial nursing facility care, per day, E/M of pt, 3 components; low severity; 25 minutes 10/16/2015 00761 METABOLIC PANEL TOTAL CA REJI CH MD 10/22/2015 70586 Initial nursing facility care, per day, E/M of pt, 3 components; low severity; 25 minutes 11/20/2015 73825 Subsequent nurse facility care, QD, EM pt, 2/3 comp; respond inadequate, minor complication; MDs 15m 11/21/2015 01584 Office/outpatient visit; established patient, level 3 12/25/2015 81367 Subsequent nurse facility care, QD, EM pt, 2/3 comp; respond inadequate, minor complication; MDs 15m 01/01/2016 96865 Radiologic examination, chest, two views, frontal and lateral 01/01/2016 72439 Office/outpatient visit; established patient, level 4 01/01/2016 70911 Radiologic examination, chest, two views, frontal and lateral 03/09/2016 74093 Office/outpatient visit; established patient, level 4 03/09/2016 74598 Subsequent nurse facility care, QD, EM pt, 2/3 comp; respond inadequate, minor complication; [facility] 15 03/11/2016 55561 Subsequent nurse facility care, QD, EM pt, 2/3 comp; respond inadequate, minor complication; [address] 05/04/2016 81409 Subsequent nurse facility care, QD, EM pt, 2/3 comp; respond inadequate, minor complication; [address] 05/06/2016 35561 Subsequent nurse facility care, QD, EM pt, 2/3 comp; respond inadequate, minor complication; [address] 07/06/2016 59728 Subsequent nurse fac care, day, EM pt, 2/3 components; signific complication/problem; 25 minutes 07/08/2016 83612 Subsequent nurse fac care, day, EM pt, 2/3 components; signific complication/problem; 25 minutes 09/03/2016 76349 Subsequent nurse fac care, day, EM pt, [...] Status Pt. Type Provider Facility Loc./Unit Complaint [id number] 03/06/2014 16:43:00 2014 16:44:48 DIS Inpatient CINDY VAZQUEZ
--- NOTE | 2016-09-15 20:05 | NUR ---
DISMISS [facility] NOTIFIED OF PTS STATUS AND DISMISSAL. [facility] ADVISED THAT THEY WOULD SEND SOMEONE TO PICK THE PT UP
--- NOTE | 2016-09-15 20:13 | NUR ---
DEPART [facility] NOTIFIED THAT THE SON AND DAUGHTER IN LAW WOULD TAKE PT HOME.
[2016-09-15 20:15] VITALS: BP 147/80; PULSE 89; RESP 18; O2SAT 93
--- NOTE | 2016-09-16 08:02 | DI ---
Indication: ITS.REASON: fall, hip pain PROCEDURE: AP and Lateral views of the Left Femur Encounter: Initial Comparison: None Findings: There is no acute fracture, dislocation or malalignment identified. Prior internally fixed femoral neck fracture. Moderate axial joint space narrowing. Impression: No acute osseous abnormality. .
== END 2016-09-15 20:15 | disposition home or self-care (01) ==
LOC: ED 18:49
DX: M25.552 Pain in left hip (principal); G89.29 Other chronic pain; W19.XXXA Unspecified fall, initial encounter; Y93.9 Activity, unspecified; Y92.129 Unspecified place in nursing home as the place of occurrence of the external cause; Y99.8 Other external cause status